=== PATIENT | female | born 1980 | race Caucasian/White ===

== ENCOUNTER 2017-01-19 09:16 | Emergency (ER) | payer OTHER ==
[~2017-01-19] VITALS: Ht 154.9 cm; Wt 68.0 kg
[~2017-01-19 09:16] MED LIST: FLEXERIL10 MG PO; NORCO 5-325 TA1 EACH PO; VICODIN5-300 PO; [UNRECOGNIZED DRUG - CODE]
[2017-01-19 09:19] VITALS: BP 126/82
--- NOTE | 2017-01-19 09:28 | ED ANIMAL BITE/WOUND CHECK ---
History of Present Illness General Chief Complaint: Suture Removal/Wound Recheck Stated Complaint: SUTURE REMOVAL Source: patient Exam Limitations: no limitations Vital Signs & Intake/Output Vital Signs & Intake/Output Vital Signs Date Time Temp Pulse Resp B/P B/P Pulse O2 O2 Flow FiO2 Mean Ox Delivery Rate 01/19 0919 97.1 73 20 126/82 98 Room Air Room Air Allergies Coded Allergies: aspirin (ITCHING 01/12/17) Reconcile Medications No Known Home Medications Triage Note: PT TO ED FOR SUTURE REMOVAL (2) TO LEFT INDEX FINGER. Triage Nurses Notes Reviewed? yes Onset: Abrupt Duration: day(s): (7) Timing: recent history Injury Environment: home : No Patient currently breastfeeds: No HPI: She presents to the ER for chief complaint of suture removal to her left index finger. Past History Travel History Traveled to [place] past 21 day No Medical History Any Pertinent Medical History? see below for history Neurological: migraine EENT: NONE Cardiovascular: NONE Respiratory: NONE Gastrointestinal: NONE Hepatic: NONE Renal: NONE Musculoskeletal: NONE Psychiatric: NONE Endocrine: NONE Blood Disorders: NONE Cancer(s): NONE CLIENT SERVICE REPRESENTATIVE/Reproductive: NONE Surgical History Surgical History: none Psychosocial History What is your primary language Fijian Tobacco Use: Never used ETOH Use: occasional use Illicit Drug Use: denies illicit drug use Family History Hx Contributory? No Review of Systems Review of Systems Constitutional: Denies: chills, fever. EENTM: Reports: no symptoms. Respiratory: Reports: no symptoms. Cardiovascular: Reports: no symptoms. GI: Reports: no symptoms. Genitourinary: Reports: no symptoms. Musculoskeletal: Reports: joint pain. Skin: Reports: see HPI (HEALING WOUND). Neurological/Psychological: Reports: no symptoms. Hematologic/Endocrine: Denies: bleeding. Immunologic/Allergic: Reports: no symptoms. All Other Systems: Reviewed and Negative Physical Exam Physical Exam General Appearance: well developed/nourished, mild distress Head: atraumatic Ears, Nose, Throat: hearing grossly normal Extremities: normal range of motion, LEFT WRIST IN SPLINT HEALING LACERATION TO LEFT INDEX FINGER Neurologic/Psych: awake, alert, oriented x 3, normal mood/affect Skin: intact, normal color, warm/dry Progress Differential Diagnosis: SUTURE REMOVAL Plan of Care: 2 SUTURES REMOVED WITHOUT INCIDENT NO INFECTION BACITRACIN/BANDAID APPLIED Departure Departure Time of Disposition: 932 Disposition: HOME OR SELF CARE Condition: Stable Clinical Impression Primary Impression: Encounter for wound re-check Referrals: JOHN PA,ANGIE Carranza (PCP/Family) Additional Instructions: Topical antibiotic ointment over the area of the finger laceration Follow-up with Dr. Jha in the office. Repeat x-ray is advised. Departure Forms: Customer Survey General Discharge Information Prescriptions: Current Visit Scripts No Known Home Medications
== END 2017-01-19 09:39 ==
LOC: ERH 09:16
DX: S61.211A Laceration without foreign body of left index finger without damage to nail, initial encounter (principal); X58.XXXA Exposure to other specified factors, initial encounter; Y92.9 Unspecified place or not applicable; Y93.9 Activity, unspecified
CPT/HCPCS: 99281